=== PATIENT | male | born 1955 | race Caucasian/White ===

== ENCOUNTER 2022-02-14 06:20 | Day surgery (SDC) | payer MEDICARE, OTHER ==
[~2022-02-14 06:20] MED LIST: Lactated Ringers 1,000 ML IV SCH; Sodium Chloride 0.9% 10 ML Syringe FLUSH PRN
[2022-02-14] MEDS ORDERED: Midazolam 1 MG/ML 2 ML SDV IV ONE (06:21)
[2022-02-14] MEDS ORDERED: Propofol 200 MG/20 ML SDV IV ONE (06:21)
[2022-02-14] MEDS ORDERED: Glycopyrrolate 0.2 MG/ML 5 ML MDV IV ONE (06:21)
[2022-02-14 06:58] VITALS: BP 124/88; PULSE 88
== END 2022-02-14 09:18 | disposition home or self-care (01) ==
LOC: FB.SDS 06:20
PROVIDERS: ATTEND Surgery
DX: Z12.11 Encounter for screening for malignant neoplasm of colon (principal); D12.0 Benign neoplasm of cecum; D12.6 Benign neoplasm of colon, unspecified; K40.90 Unilateral inguinal hernia, without obstruction or gangrene, not specified as recurrent; K42.9 Umbilical hernia without obstruction or gangrene; E78.00 Pure hypercholesterolemia, unspecified; K21.9 Gastro-esophageal reflux disease without esophagitis; J44.9 Chronic obstructive pulmonary disease, unspecified; J18.9 Pneumonia, unspecified organism; E66.9 Obesity, unspecified; F32.A Depression, unspecified; F17.200 Nicotine dependence, unspecified, uncomplicated; Z68.30 Body mass index [BMI] 30.0-30.9, adult; Z98.890 Other specified postprocedural states; Z86.010 Personal history of colon polyps
CPT/HCPCS: 00811; 45381; 45385; 88305; J2250; J2704; J3490; J7120

== ENCOUNTER 2022-03-13 20:41 | Emergency (ER) | payer MEDICARE, OTHER ==
[2022-03-13] MEDS ORDERED: hydrOXYzine HCl 50 MG/ML SDV IM ONE (20:52)
[2022-03-13] MEDS ORDERED: HYDROmorphone 2 MG/ML SDV IM ONE (20:52)
[2022-03-13 21:31] VITALS: BP 136/82; PULSE 106
== END 2022-03-13 22:00 | disposition home or self-care (01) ==
LOC: FB.ED 20:41
DX: M79.605 Pain in left leg (principal); J44.9 Chronic obstructive pulmonary disease, unspecified; K21.9 Gastro-esophageal reflux disease without esophagitis; E66.9 Obesity, unspecified; Z68.30 Body mass index [BMI] 30.0-30.9, adult; Z79.899 Other long term (current) drug therapy
CPT/HCPCS: 96372; 99282; 99283; J1170; J3410

== ENCOUNTER 2022-03-17 06:26 | Day surgery (SDC) | payer MEDICARE, OTHER ==
[2022-03-17] MEDS ORDERED: Propofol 200 MG/20 ML SDV IV ONE (06:27)
[2022-03-17] MEDS ORDERED: Glycopyrrolate 0.2 MG/ML 5 ML MDV IV ONE (06:27)
[2022-03-17 09:29] VITALS: BP 131/95; PULSE 91
== END 2022-03-17 09:19 | disposition home or self-care (01) ==
LOC: FB.SDS 06:26
PROVIDERS: ATTEND Surgery
DX: D12.8 Benign neoplasm of rectum (principal); K57.30 Diverticulosis of large intestine without perforation or abscess without bleeding; K58.9 Irritable bowel syndrome, unspecified; J44.9 Chronic obstructive pulmonary disease, unspecified; E78.5 Hyperlipidemia, unspecified; E66.9 Obesity, unspecified; F17.210 Nicotine dependence, cigarettes, uncomplicated; F32.A Depression, unspecified; K21.9 Gastro-esophageal reflux disease without esophagitis; Z79.899 Other long term (current) drug therapy; Z68.32 Body mass index [BMI] 32.0-32.9, adult; Z98.890 Other specified postprocedural states
CPT/HCPCS: 00811; 45385; 88305; J2704; J3490; J7120